=== PATIENT | female | born 2000 | race American Indian/Alaskan Native ===

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

== ENCOUNTER 2019-05-13 01:12 | Emergency (ER) | payer SELFPAY ==
[2019-05-13 01:40] LABS: Basophils % (Auto) 0.6 % (0.0-1.8); Eosinophils # (Auto) 0.2 K/mm3 (0.0-0.4); Eosinophils % (Auto) 2.9 % (0.0-4.3); Hematocrit 36.3 % (30.3-42.9); Lymphocytes # (Auto) 3.2 K/mm3 (1.2-5.4); Lymphocytes % (Auto) 40.1 % (13.4-35.0); Mean Corpuscular HGB Conc 36 % (30-34); Mean Corpuscular Volume 91 fl (79-97); Monocytes # (Auto) 0.8 K/mm3 (0.0-0.8); Monocytes % (Auto) 9.8 % (0.0-7.3); Platelet Count 189 K/mm3 (140-440); Red Cell Distribution Width 13.5 % (13.2-15.2)
[2019-05-13 01:57] LABS: Bilirubin,Urine NEG (Negative); Blood,Urine NEG (Negative); Color,Urine Straw (Yellow); Mucus,Urine FEW /HPF; Protein,Urine <15 mg/dL mg/dL (Negative); Urobilinogen,Urine < 2.0 mg/dL (<2.0)
[2019-05-13 02:03] LABS: Alanine Aminotransferase 37 units/L (7-56); Albumin 4.1 g/dL (3.9-5); BUN/Creatinine Ratio 9; Blood Urea Nitrogen 6 mg/dL (7-17); Calcium 9.3 mg/dL (8.4-10.2); Hemolysis Index 12
[2019-05-13] MEDS ORDERED: NACL 0.9% 1000 ML 1,000 ML IV ONE (02:06)
[2019-05-13] MEDS ORDERED: ZOFRAN IV ONE (02:06)
--- NOTE | 2019-05-13 04:36 | Ultrasound Report ---
PROCEDURE: US OB <= 14 WEEKS FETUS TECHNIQUE: Real-time transabdominal sonography of the uterus, placenta, amniotic fluid, adnexa, and fetus was performed with image documentation. Measurements were obtained to determine age/size. M-mode Doppler was used to document heartbeat. ADDITIONAL GESTATION: None. HISTORY: preg with abd pain/bleeding COMPARISONS: None . FINDINGS: CRL: 2.1 mm, which corresponds to a gestational age of: 5 weeks, 5 days. Yolk Sac: Appropriate for gestational age. . Embryonic Cardiac Activity: 76 . Gestational Sac: Size and shape are appropriate for gestational age Placenta: Normal Amniotic fluid: Appropriate for gestational age. Cervix: Normal. Right Ovary: There is a 2.3 cm complex cyst. . Left Ovary: Normal . Estimated delivery date: 01/08/2020 . Uterus and adnexa: Normal. IMPRESSION: Single live intrauterine gestation at approximately 5 weeks 5 days . EDC by US 0 . heart rate is low. This could be artifact due to early gestational age. Follow-up is recomm ended. This document is electronically signed by Abdi Ramos MD., May 13 2019 04:34:12 AM ET
--- NOTE | 2019-05-13 04:36 | Ultrasound Report ---
PROCEDURE: US OB TRANSVAGINAL TECHNIQUE: Real-time transvaginal sonography of the uterus, placenta, amniotic fluid, adnexa, and fe tus was performed with image documentation. Measurements were obtained to determine age/size. M -mode Doppler was used to document heartbeat. ADDITIONAL GESTATION: None. HISTORY: preg with abd pain/bleeding COMPARISONS: None . FINDINGS: CRL: 2.1 mm, which corresponds to a gestational age of: 5 weeks, 5 days. Yolk Sac: Appropriate for gestational age. . Embryonic Cardiac Activity: 76 . Gestational Sac: Size and shape are appropriate for gestational age Placenta: Normal Amniotic fluid: Appropriate for gestational age. Cervix: Normal. Right Ovary: There is a 2.3 cm complex cyst. . Left Ovary: Normal . Estimated delivery date: 01/08/2020 . Uterus and adnexa: Normal. IMPRESSION: Single live intrauterine gestation at approximately 5 weeks 5 days . EDC by US 0 . heart rate is low. This could be artifact due to early gestational age. Follow-up is recomm ended. This document is electronically signed by Abdi Ramos MD. , May 13 2019 04:34:56 AM ET
--- NOTE | 2019-05-13 05:00 | Emergency Department Report ---
Vomiting/Diarrhea - HPI Chief Complaint: Abdominal Pain Stated Complaint: ABD PAIN Time Seen by Provider: 05/13/19 01:50 Duration: patient is a 19-year-old female who is presenting with nausea and vomiting for approximately 1 month Severity: mild Nausea/Vomiting Severity: Mild Diarrhea Severity: None Pain Location: Generalized Pain Severity: Mild Symptoms: Yes Able to Tolerate Fluids, No Watery Diarrhea, No Bloody diarrhea, No Fever, No Recent Unusual Foods, No Recent Untreated Water, No Family w/ Similar Symptoms, No Contacts w/ Similar Symptoms, No Rash, No Hematuria, No Recent URI Symptoms Other History: A she states took 4 tests at home however she didn't believe them ED Review of Systems ROS: Stated complaint: ABD PAIN Other details as noted in HPI Comment: All other systems reviewed and negative ED Past Medical Hx - Past Medical History Previous Medical History?: No - Surgical History Past Surgical History?: Yes Additional Surgical History: miscarriage - Social History Smoking Status: Current Every Day Smoker Substance Use Type: Alcohol, Marijuana - Medications Home Medications: Home Medications Medication Instructions Recorded Confirmed Last Taken Type Ibuprofen [Motrin] 600 mg PO Q8H PRN #20 tablet 10/20/18 Unknown Rx Nitrofurantoin Monohyd/M-Cryst 100 mg PO BID #14 capsule 10/20/18 Unknown Rx [Macrobid 100 mg Capsule] Ondansetron [Zofran Odt] 4 mg PO Q8HR PRN #10 tab.rapdis 11/29/18 Unknown Rx Sulfamethoxazole/Trimethoprim 1 each PO BID #14 tablet 11/29/18 Unknown Rx [Bactrim DS TAB] Ibuprofen [Ibu] 600 mg PO Q6HR PRN #20 tablet 03/20/19 Unknown Rx Nitrofurantoin Monohyd/M-Cryst 100 mg PO BID #14 capsule 03/20/19 Unknown Rx [Macrobid 100 mg Capsule] Phenazopyridine [Pyridium] 200 mg PO BID #6 tab 03/20/19 Unknown Rx Ondansetron [Zofran Odt] 4 mg PO Q8HR #10 tab.rapdis 05/13/19 Unknown Rx Vomiting Diarrhea Exam - Exam General: Vital signs noted. No distress. Alert and acting appropriately. HEENT: Yes Moist Mucous Membranes, No Pharyngeal Erythema, No Pharyngeal Exudates, No Rhinorrhea, No Conjuctival Injection, No Frontal Tenderness, No Maxillary Tenderness Neck: No Adenopathy, No Rigidity Lungs: Yes Clear Lung Sounds, Yes Good Air Exchange, No Wheezes, No Stridor, No Cough, No Nasal Flaring, No Retractions, No Use of Accessory Muscles Heart exam: Regular: Yes, Murmur: No, Tachycardia: No Abdomen: Tenderness: No, Peritoneal Signs: No, Distention: No, Hyperactive Bowel sounds: No Skin exam: Rash: No, Edema: No, Normal turgor: Yes Neurologic: Alert and oriented, no deficits. Musculoskeletal: Unremarkable. ED Course Vital Signs 05/13/19 01:45 Temperature 99.1 F Pulse Rate 66 Respiratory 16 Rate Blood Pressure 108/63 [Left] O2 Sat by Pulse 97 Oximetry ED Medical Decision Making - Lab Data Result diagrams: 05/13/19 01:22 05/13/19 01:22 Patient: WILL MORRELL MR#: [id number] : 2000 Acct:[id number] Age/Sex: 19 / F ADM Date: 05/13/19 Loc: ED Attending Dr: Ordering Physician: LEVI MARTINEZ MD Date of Service: 05/13/19 Procedure(s): US OB transvaginal Accession Number(s): [id number] cc: LEVI MARTINEZ MD PROCEDURE: US OB TRANSVAGINAL TECHNIQUE: Real-time transvaginal sonography of the uterus, placenta, amniotic fluid, adnexa, and fetus was performed with image documentation. Measurements were obtained to determine age/size. M-mode Doppler was used to document heartbeat. ADDITIONAL GESTATION: None. HISTORY: preg with abd pain/bleeding COMPARISONS: None . FINDINGS: CRL: 2.1 mm, which corresponds to a gestational age of: 5 weeks, 5 days. Yolk Sac: Appropriate for gestational age. . Embryonic Cardiac Activity: 76 . Gestational Sac: Size and shape are appropriate for gestational age Placenta: Normal Amniotic fluid: Appropriate for gestational age. Cervix: Normal. Right Ovary: There is a 2.3 cm complex cyst. . Left Ovary: Normal . Estimated delivery date: 01/08/2020 . Uterus and adnexa: Normal. IMPRESSION: Single live intrauterine gestation at approximately 5 weeks 5 days . EDC by US 01/08/2020 . heart rate is low. This could be artifact due to early gestational age. Follow-up is recommended. This document is electronically signed by Abdi Grayson MD. , May 13 2019 04:34:56 AM ET Transcribed By: CO Dictated By: ABDI GRAYSON MD Electronically Authenticated By: ABDI GRAYSON MD Signed Date/Time: 05/13/19435 DD/ 4 TD/TT: 05/13/19407 - Radiology Data Patient: WILL MORRELL MR#: [id number] : 2000 Acct:[id number] Age/Sex: 19 / F ADM Date: 05/13/19 Loc: ED Attending Dr: Ordering Physician: LEVI MARTINEZ MD Date of Service: 05/13/19 Procedure(s): US OB transvaginal Accession Number(s): [id number] cc: LEVI MARTINEZ MD PROCEDURE: US OB TRANSVAGINAL TECHNIQUE: Real-time transvaginal sonography of the uterus, placenta, amniotic fluid, adnexa, and fetus was performed with image documentation. Measurements were obtained to determine age/size. M-mode Doppler was used to document heartbeat. ADDITIONAL GESTATION: None. HISTORY: preg with abd pain/bleeding COMPARISONS: None . FINDINGS: CRL: 2.1 mm, which corresponds to a gestational age of: 5 weeks, 5 days. Yolk Sac: Appropriate for gestational age. . Embryonic Cardiac Activity: 76 . Gestational Sac: Size and shape are appropriate for gestational age Placenta: Normal Amniotic fluid: Appropriate for gestational age. Cervix: Normal. Right Ovary: There is a 2.3 cm complex cyst. . Left Ovary: Normal . Estimated delivery date: 01/08/2020 . Uterus and adnexa: Normal. IMPRESSION: Single live intrauterine gestation at approximately 5 weeks 5 days . EDC by US 01/08/2020 . heart rate is low. This could be artifact due to early gestational age. Follow-up is recommended. This document is electronically signed by Abdi Grayson MD. , May 13 2019 04:34:56 AM ET Transcribed By: CO Dictated By: ABDI GRAYSON MD Electronically Authenticated By: ABDI GRAYSON MD Signed Date/Time: 05/13/19435 DD/ 4 TD/TT: 05/13/19 0408 - Medical Decision Making She was hydrated and her nausea was addressed. Patient does have a viable IEP and will be given [employer]IDENTIAL [employer]UMBER for follow-up Critical care attestation.: If time is entered above; I have spent that time in minutes in the direct care of this critically ill patient, excluding procedure time. ED Disposition Clinical Impression: IUP (intrauterine ), incidental, Hyperemesis gravidarum Disposition: TO HOME OR SELFCARE Is pt being admited?: No Does the pt Need Aspirin: No Condition: Stable Instructions: Hyperemesis Gravidarum (ED), (ED) [facility] - 3-5 Days MARCELINO GIPSON MD [Staff Physician] - 3-5 Days Time of Disposition: 05:00
[2019-05-13 05:12] VITALS: BP 115/80
== END 2019-05-13 05:12 | disposition home or self-care (01) ==
LOC: ED 01:12
DX: O21.0 Mild hyperemesis gravidarum (principal); Z3A.01 Less than 8 weeks gestation of pregnancy
CPT/HCPCS: 36415; 76801; 76817; 80053; 81001; 83690; 84702; 84703; 85025; 96361; 96374; 99284; J2405; J7030

== ENCOUNTER 2019-05-19 16:32 | Emergency (ER) | payer OTHER ==
[2019-05-19 16:37] VITALS: BP 106/45
--- NOTE | 2019-05-19 16:37 | Event Note ---
ED Screening Note ED Screening Note: M1 VAG BLEED IN PREG LMP 5-10 RX NONE PMH NONE PSH NONE NO CARE CIG This initial assessment/diagnostic orders/clinical plan/treatment(s) is/are subject to change based on patients health status, clinical progression and re- assessment by fellow clinical providers in the ED. Further treatment and workup at subsequent clinical providers discretion. Patient/guardian urged not to elope from the ED as their condition may be serious if not clinically assessed and managed. Initial orders include:
[2019-05-19 17:09] LABS: Hematocrit 37.4 % (30.3-42.9); Hemoglobin 12.9 gm/dl (10.1-14.3); Mean Corpuscular HGB Conc 35 % (30-34); Mean Corpuscular Volume 91 fl (79-97); Platelet Count 205 K/mm3 (140-440); Red Blood Count 4.13 M/mm3 (3.65-5.03); Red Cell Distribution Width 13.3 % (13.2-15.2)
[2019-05-19 17:39] LABS: HCG Qualitative,Urine Positive (Negative)
[2019-05-19 17:44] LABS: Bacteria,Urine 1+ /HPF (Negative); Bilirubin,Urine NEG (Negative); Blood,Urine NEG (Negative); Color,Urine Yellow (Yellow); Mucus,Urine FEW /HPF; Protein,Urine <15 mg/dL mg/dL (Negative); Urobilinogen,Urine < 2.0 mg/dL (<2.0)
[2019-05-19 17:46] LABS: Alanine Aminotransferase 27 units/L (7-56); BUN/Creatinine Ratio 7; Blood Urea Nitrogen 5 mg/dL (7-17); Calcium 8.9 mg/dL (8.4-10.2); Hemolysis Index 8
--- NOTE | 2019-05-19 20:15 | Emergency Department Report ---
ED HPI - General Chief complaint: Vaginal Bleeding Stated complaint: VAGINAL BLEEDING Time Seen by Provider: 05/19/19 16:36 Source: patient Mode of arrival: Ambulatory Limitations: No Limitations - History of Present Illness Initial comments: 19 year old female presents to the emergency room for vaginal bleeding since yesterday. Patient reports that she is 6 weeks . Last menstrual period was 04/07/2019. She is 2 para 0. Patient reports she's been spotting has not filled up any pads. She does report pelvic pain that is achy and intermittent. She is currently not on vitamins or care. She has no past medical history takes no medications on a daily basis and has no known drug allergies. MD Complaint: vaginal bleeding Onset/Timin -: days(s) Location: pelvis Radiation: suprapubic Severity scale (0 -10): 8 Quality: cramping Consistency: intermittent Improves with: none Worsens with: none Associated symptoms: denies other symptoms - Related Data Previous Rx's Medication Instructions Recorded Last Taken Type Ibuprofen [Motrin] 600 mg PO Q8H PRN #20 tablet 10/20/18 Unknown Rx Nitrofurantoin Monohyd/M-Cryst 100 mg PO BID #14 capsule 10/20/18 Unknown Rx [Macrobid 100 mg Capsule] Ondansetron [Zofran Odt] 4 mg PO Q8HR PRN #10 tab.rapdis 11/29/18 Unknown Rx Sulfamethoxazole/Trimethoprim 1 each PO BID #14 tablet 11/29/18 Unknown Rx [Bactrim DS TAB] Ibuprofen [Ibu] 600 mg PO Q6HR PRN #20 tablet 03/20/19 Unknown Rx Nitrofurantoin Monohyd/M-Cryst 100 mg PO BID #14 capsule 03/20/19 Unknown Rx [Macrobid 100 mg Capsule] Phenazopyridine [Pyridium] 200 mg PO BID #6 tab 03/20/19 Unknown Rx Ondansetron [Zofran Odt] 4 mg PO Q8HR #10 tab.rapdis 05/13/19 Unknown Rx Nitrofurantoin Sabine/M-Cryst 100 mg PO Q12HR 10 Days #20 capsule 05/19/19 Unknown Rx [Macrobid CAP] Pnv,Calcium 72/Iron/Folic Acid 1 each PO QDAY #90 tablet 05/19/19 Unknown Rx [ Plus Tablet] Allergies Allergy/AdvReac Type Severity Reaction Status Date / Time No Known Allergies Allergy Verified 05/19/19 16:33 ED Review of Systems ROS: Stated complaint: VAGINAL BLEEDING Other details as noted in HPI Comment: All other systems reviewed and negative Gastrointestinal: abdominal pain (suprapubic pain) Genitourinary: other (vaginal spotting) ED Past Medical Hx - Past Medical History Previous Medical History?: No - Surgical History Past Surgical History?: Yes Additional Surgical History: miscarriage - Social History Smoking Status: Current Every Day Smoker Substance Use Type: None - Medications Home Medications: Home Medications Medication Instructions Recorded Confirmed Last Taken Type Ibuprofen [Motrin] 600 mg PO Q8H PRN #20 tablet 10/20/18 Unknown Rx Nitrofurantoin Monohyd/M-Cryst 100 mg PO BID #14 capsule 10/20/18 Unknown Rx [Macrobid 100 mg Capsule] Ondansetron [Zofran Odt] 4 mg PO Q8HR PRN #10 tab.rapdis 11/29/18 Unknown Rx Sulfamethoxazole/Trimethoprim 1 each PO BID #14 tablet 11/29/18 Unknown Rx [Bactrim DS TAB] Ibuprofen [Ibu] 600 mg PO Q6HR PRN #20 tablet 03/20/19 Unknown Rx Nitrofurantoin Monohyd/M-Cryst 100 mg PO BID #14 capsule 03/20/19 Unknown Rx [Macrobid 100 mg Capsule] Phenazopyridine [Pyridium] 200 mg PO BID #6 tab 03/20/19 Unknown Rx Ondansetron [Zofran Odt] 4 mg PO Q8HR #10 tab.rapdis 05/13/19 Unknown Rx Nitrofurantoin [place]/M-Cryst 100 mg PO Q12HR 10 Days #20 capsule 05/19/19 U nknown Rx [Macrobid CAP] Pnv,Calcium 72/Iron/Folic Acid 1 each PO QDAY #90 tablet 05/19/19 Unknown Rx [ Plus Tablet] ED Physical Exam - General Limitations: No Limitations General appearance: alert, in no apparent distress - Head Head exam: Present: atraumatic, normocephalic - Eye Eye exam: Present: normal appearance - ENT ENT exam: Present: mucous membranes moist - Neck Neck exam: Present: normal inspection - Respiratory Respiratory exam: Present: normal lung sounds bilaterally. Absent: respiratory distress - Cardiovascular Cardiovascular Exam: Present: regular rate, normal rhythm. Absent: systolic murmur, diastolic murmur, rubs, gallop - GI/Abdominal GI/Abdominal exam: Present: soft, tenderness (suprapubic), normal bowel sounds. Absent: distended - Extremities Exam Extremities exam: Present: normal inspection - Back Exam Back exam: Present: normal inspection - Neurological Exam Neurological exam: Present: alert, oriented X3, normal gait - Psychiatric Psychiatric exam: Present: normal affect, normal mood - Skin Skin exam: Present: warm, dry, intact, normal color. Absent: rash ED Course Vital Signs 05/19/19 16:36 Temperature 98.6 F Pulse Rate 76 Respiratory 16 Rate Blood Pressure 106/45 O2 Sat by Pulse 100 Oximetry ED Medical Decision Making - Lab Data Result diagrams: 05/19/19 16:43 05/19/19 16:43 Laboratory Results - last 72 hr 05/19/19 05/19/19 05/19/19 16:43 16:43 16:43 WBC 5.7 RBC 4.13 Hgb 12.9 Hct 37.4 MCV 91 MCH 31 MCHC 35 H RDW 13.3 Plt Count 205 Sodium 131 L Potassium 3.4 L Chloride 96.6 L Carbon Dioxide 23 Anion Gap 15 BUN 5 L Creatinine 0.7 Estimated GFR > 60 BUN/Creatinine Ratio 7 Glucose 100 Calcium 8.9 Total Bilirubin 0.40 AST 20 ALT 27 Alkaline Phosphatase 52 Total Protein 7.1 Albumin 4.0 Albumin/Globulin Ratio 1.3 HCG, Quant 33999 H Urine Color Urine Turbidity Urine pH Ur Specific [place] Urine Protein Urine Glucose (UA) Urine Ketones Urine Blood Urine Nitrite Ur Reducing Substances Urine Bilirubin Urine Ictotest Urine Urobilinogen Ur Leukocyte Esterase Urine WBC (Auto) Urine RBC (Auto) U Epithel Cells (Auto) Urine Bacteria (Auto) Urine Mucus Urine HCG, Qual Blood Type 05/19/19 05/19/19 16:43 16:44 WBC RBC Hgb Hct MCV MCH MCHC RDW Plt Count Sodium Potassium Chloride Carbon Dioxide Anion Gap BUN Creatinine Estimated GFR BUN/Creatinine Ratio Glucose Calcium Total Bilirubin AST ALT Alkaline Phosphatase Total Protein Albumin Albumin/Globulin Ratio HCG, Quant Urine Color Yellow Urine Turbidity Slightly-cloudy Urine pH 7.0 Ur Specific [place] 1.015 Urine Protein <15 mg/dl Urine Glucose (UA) Neg Urine Ketones Neg Urine Blood Neg Urine Nitrite Neg Ur Reducing Substances Not Reportable Urine Bilirubin Neg Urine Ictotest Not Reportable Urine Urobilinogen < 2.0 Ur Leukocyte Esterase Mod Urine WBC (Auto) 10.0 H Urine RBC (Auto) 4.0 U Epithel Cells (Auto) 9.0 Urine Bacteria (Auto) 1+ Urine Mucus Few Urine HCG, Qual Positive A Blood Type O POSITIVE - Radiology Data Radiology results: report reviewed Patient: WILL MORRELL MR#: [id number] : 2000 Acct:[id number] Age/Sex: 19 / F ADM Date: 05/19/19 Loc: ED Attending Dr: Ordering Physician: FRANSISCO ESPINOSA Date of Service: 05/19/19 Procedure(s): US OB transvaginal Accession Number(s): [id number] cc: FRANSISCO ESPINOSA PROCEDURE: US OB TRANSVAGINAL TECHNIQUE: Real-time limited sonographic examination was performed for evaluation of each fetus with image documentation (1 or more fetuses). HISTORY: VAG BLEED . LMP 04/07/2019 with estimated age 6 weeks 0 days and EDC 01/12/2020 COMPARISONS: Ultrasound pelvis 05/13/2019 FINDINGS: MATERNAL Uterus: Within normal limits measuring 7.9 x 3.8 x 6.4 cm Internal Os: closed FETUS IUP: Single living intrauterine Amniotic fluid volume: Normal Heart rate and rhythm: 1:15 BPM, Regular gestational sac: pole and yolk sac visualized MEASUREMENTS CRL: 5.5 mm Mean Gestational Age (composite criteria): 6 weeks 2 days . Estimated Due Date (earliest scan): 01/10/2020 RIGHT OVARY: Normal measuring 3.5 x 2.0 x 2.7 cm. This is a 2.0 x 1.5 x 1.4 cm hypoechoic avascular area in the right ovary, smaller than seen previously. LEFT OVARY: Normal measuring 2.6 x 1.3 x 1.3 cm IMPRESSION: 1. Single living intrauterine gestation at approximately 6 weeks 2 days 2. EDC by US 01/10/2020 3. Reduction in size of the hypoechoic focus in the right ovary This document is electronically signed by Rosemary Branham MD., May 19 2019 08:28:54 PM ET Transcribed By: [facility] Dictated By: ROSEMARY BRANHAM MD Electronically Authenticated By: ROSEMARY BRANHAM MD Signed Date/Time: 05/19/192030 DD/ 52 TD/TT: 05/19/191953 - Medical Decision Making 19-year-old -[place] female reports that she is approximately 6 weeks comes in for vaginal bleeding and suprapubic pain. Labs show the patient is some mild low potassium 3.4. Urinalysis showed that she has urinary tract infection with 1+ bacteria. Critical care attestation.: If time is entered above; I have spent that time in minutes in the direct care of this critically ill patient, excluding procedure time. ED Disposition Clinical Impression: IUP (intrauterine ), incidental, Vaginal spotting, UTI (urinary tract infection) during Disposition: - TO HOME OR SELFCARE Is pt being admited?: No Does the pt Need Aspirin: No Condition: Stable Instructions: Urinary Tract Infection in Women (ED), Threatened Miscarriage (ED) Additional Instructions: Complete antibiotics as prescribed. Take her vitamins as prescribed. Tylenol as needed. Increase her water intake while taking medications. Follow- up with an OB provider I have listed several below for your convenience. Prescriptions: Nitrofurantoin Sabine/M-Cryst [Macrobid CAP] 100 mg PO Q12HR 10 Days #20 capsule Pnv,Calcium 72/Iron/Folic Acid [ Plus Tablet] 1 each PO QDAY #90 tablet Referrals: RAJI IZQUIERDO MD [Primary Care Provider] - 3-5 Days [facility] [Provider Group] - 3-5 Days [facility] [Provider Group] - 3-5 Days [facility] [Provider Group] - 3-5 Days Forms: Work/School Release Form(ED)
--- NOTE | 2019-05-19 20:24 | Ultrasound Report ---
PROCEDURE: US OB <= 14 WEEKS FETUS HISTORY: VAG BLEED FINDINGS: Real-time ultrasound of the pelvis was performed by transabdominal and endovaginal techniqu e. There is a single live intrauterine gestation at approximately 6 weeks and 2 days with cardiac activity 118 bpm. The right ovary measures 3.5 x 2.0 x 2.7 cm the left ovary 2.6 x 1.3 x 1.3 cm. There is no adnexal ma ss or evidence of ovarian torsion. IMPRESSION: Live intrauterine gestation at approximately 6 weeks and 2 days. Estimated date of delive ry is January 10, 2020 This document is electronically signed by Michael Mac MD., May 19 2019 08:21:56 PM ET
--- NOTE | 2019-05-19 20:31 | Ultrasound Report ---
PROCEDURE: US OB TRANSVAGINAL TECHNIQUE: Real-time limited sonographic examination was performed for evaluation of each fetus with image documentation (1 or more fetuses). HISTORY: VAG BLEED . LMP 04/07/2019 with estimated age 6 weeks 0 days and EDC 01/12/2020 COMPARISONS: Ultrasound pelvis 05/13/2019 FINDINGS: MATERNAL Uterus: Within normal limits measuring 7.9 x 3.8 x 6.4 cm Internal Os: closed FETUS IUP: Single living intrauterine Amniotic fluid volume: Normal Heart rate and rhythm: 1:15 BPM, Regular gestational sac: pole and yolk sac visualized MEASUREMENTS CRL: 5.5 mm Mean Gestational Age (composite criteria): 6 weeks 2 days . Estimated Due Date (earliest scan): 01/10/2020 RIGHT OVARY: Normal measuring 3.5 x 2.0 x 2.7 cm. This is a 2.0 x 1.5 x 1.4 cm hypoechoic avascular a evon in the right ovary, smaller than seen previously. LEFT OVARY: Normal measuring 2.6 x 1.3 x 1.3 cm IMPRESSION: 1. Single living intrauterine gestation at approximately 6 weeks 2 days 2. EDC by US 01/10/2020 3. Reduction in size of the hypoechoic focus in the right ovary This document is electronically signed by Rosemary Branham MD., May 19 2019 08:28:54 PM ET
== END 2019-05-19 21:09 | disposition home or self-care (01) ==
LOC: ED 16:32
DX: O20.8 Other hemorrhage in early pregnancy (principal); O99.331 Smoking (tobacco) complicating pregnancy, first trimester; Z3A.01 Less than 8 weeks gestation of pregnancy
CPT/HCPCS: 36415; 76801; 76817; 80053; 81001; 81025; 84702; 85027; 86900; 86901; 87086

== ENCOUNTER 2019-06-20 16:57 | Emergency (ER) | payer SELFPAY ==
[2019-06-20 18:13] VITALS: BP 102/55
--- NOTE | 2019-06-20 18:15 | Event Note ---
ED Screening Note Date of service: 06/20/19 Time: 18:11 ED Screening Note: This is a 19 y.o. F. that presents to the ER with abdominal pain and chest pain. Patient is 10 weeks w/o LUNCHROOM SUPERVISOR care. Reports vaginal discharge. Denies vaginal bleeding, cough, fever, This initial assessment/diagnostic orders/clinical plan/treatment(s) is/are subject to change based on patients health status, clinical progression and re- assessment by fellow clinical providers in the ED. Further treatment and workup at subsequent clinical providers discretion. Patient/guardian urged not to elope from the ED as their condition may be serious if not clinically assessed and managed. Initial orders include: Labs and OB US
[2019-06-20 18:59] LABS: Basophils % (Auto) 0.5 % (0.0-1.8); Eosinophils # (Auto) 0.2 K/mm3 (0.0-0.4); Eosinophils % (Auto) 2.7 % (0.0-4.3); Hematocrit 38.8 % (30.3-42.9); Hemoglobin 13.5 gm/dl (10.1-14.3); Lymphocytes # (Auto) 2.4 K/mm3 (1.2-5.4); Lymphocytes % (Auto) 29.1 % (13.4-35.0); Mean Corpuscular HGB Conc 35 % (30-34); Mean Corpuscular Volume 89 fl (79-97); Monocytes # (Auto) 0.7 K/mm3 (0.0-0.8); Monocytes % (Auto) 8.9 % (0.0-7.3); Platelet Count 200 K/mm3 (140-440); Red Blood Count 4.35 M/mm3 (3.65-5.03); Red Cell Distribution Width 12.9 % (13.2-15.2)
[2019-06-20 19:11] LABS: Bacteria,Urine 2+ /HPF (Negative); Bilirubin,Urine NEG (Negative); Blood,Urine NEG (Negative); Color,Urine Yellow (Yellow); Mucus,Urine FEW /HPF; Protein,Urine <15 mg/dL mg/dL (Negative); Urobilinogen,Urine < 2.0 mg/dL (<2.0)
[2019-06-20 19:14] LABS: Alanine Aminotransferase 21 units/L (7-56); Albumin 4.4 g/dL (3.9-5); BUN/Creatinine Ratio 10; Blood Urea Nitrogen 5 mg/dL (7-17); Calcium 9.5 mg/dL (8.4-10.2); Hemolysis Index 7
--- NOTE | 2019-06-20 20:05 | Ultrasound Report ---
ULTRASOUND OBSTETRIC INDICATION / CLINICAL INFORMATION: abdominal pain 20 weeks gest. TECHNIQUE: Transabdominal. COMPARISON: OB ultrasound 05/19/2019 FINDINGS: GESTATIONAL SAC: Well-defined oval shape and intrauterine in location. YOLK SAC: No significant abnormality. EMBRYO/FETUS: No significant abnormality. - [place]-Rump Length = 4.14 cm = 11 weeks, 0 day(s). - Heart Rate, beats per minute (if present) = 172 ADNEXA: Right ovary appears within normal limits measuring 3.1 x 3.1 x 3.0 cm without cyst or mass. Left ovary visualized secondary to overlying bowel gas. FREE FLUID: None. ADDITIONAL FINDINGS: None. IMPRESSION: 1. Single, living intrauterine with estimated sonographic age of 11 weeks, 0 day(s). 2. Left ovary not visualized Signer Name: Max Rmoero MD Signed: 06/20/2019 8:00 PM Workstation Name: [id number]
--- NOTE | 2019-06-20 20:53 | Emergency Department Report ---
HPI - General Chief Complaint: Chest Pain Time Seen by Provider: 06/20/19 18:11 - HPI HPI: Morris 19 The patient is a 19-year-old female presenting with a chief complaint of abdominal pain and chest pain. The patient states she is approximately 10 weeks gestational age but does not yet have an NETWORK FIELD ENGINEER. Patient states for the past 2 days she has had intermittent suprapubic abdominal pain. Patient denies dysuria or hematuria. Patient denies vaginal bleeding. The patient states today she is also had sharp substernal chest pain and pleurisy. Patient states occasionally she feels short of breath. Patient denies history of fever or cough Location: [See above] Duration: [See above] Quality: [See above] Severity: [See above] Modifying factors: [see above] Context: [see above] Mode of transportation: [not driving] ED Past Medical Hx - Past Medical History Previous Medical History?: No - Surgical History Additional Surgical History: miscarriage - Family History Family history: no significant - Social History Smoking Status: Current Every Day Smoker (1 cigarette daily) Substance Use Type: None (denies illicit drug use) - Medications Home Medications: Home Medications Medication Instructions Recorded Confirmed Last Taken Type Ibuprofen [Motrin] 600 mg PO Q8H PRN #20 tablet 10/20/18 Unknown Rx Nitrofurantoin Monohyd/M-Cryst 100 mg PO BID #14 capsule 10/20/18 Unknown Rx [Macrobid 100 mg Capsule] Ondansetron [Zofran Odt] 4 mg PO Q8HR PRN #10 tab.rapdis 11/29/18 Unknown Rx Sulfamethoxazole/Trimethoprim 1 each PO BID #14 tablet 11/29/18 Unknown Rx [Bactrim DS TAB] Ibuprofen [Ibu] 600 mg PO Q6HR PRN #20 tablet 03/20/19 Unknown Rx Nitrofurantoin Monohyd/M-Cryst 100 mg PO BID #14 capsule 03/20/19 Unknown Rx [Macrobid 100 mg Capsule] Phenazopyridine [Pyridium] 200 mg PO BID #6 tab 03/20/19 Unknown Rx Ondansetron [Zofran Odt] 4 mg PO Q8HR #10 tab.rapdis 05/13/19 Unknown Rx Nitrofurantoin Ashley/M-Cryst 100 mg PO Q12HR 10 Days #20 capsule 05/19/19 Unknown Rx [Macrobid CAP] Pnv,Calcium 72/Iron/Folic Acid 1 each PO QDAY #90 tablet 05/19/19 Unknown Rx [ Plus Tablet] Nitrofurantoin Ashley/M-Cryst 100 mg PO Q12HR #14 capsule 06/20/19 Unknown Rx [Macrobid CAP] ED Review of Systems ROS: Stated complaint: CHEST PAIN/ADB PAIN/10 WKS PREG Other details as noted in HPI Constitutional: denies: fever Eyes: denies: eye pain ENT: denies: throat pain Respiratory: shortness of breath Cardiovascular: chest pain Endocrine: no symptoms reported Gastrointestinal: abdominal pain Genitourinary: denies: dysuria, hematuria, abnormal menses Musculoskeletal: denies: back pain Neurological: denies: headache Physical Exam - Physical Exam Vital Signs: Vital Signs 06/20/19 18:11 Temperature 98.4 F Pulse Rate 76 Respiratory 18 Rate Blood Pressure 102/55 O2 Sat by Pulse 100 Oximetry Physical Exam: GENERAL: The patient is well-developed well-nourished female lying on stretcher not appear to be in acute distress. [] HEENT: Normocephalic. Atraumatic. Extraocular motions are intact. Patient has moist mucous membranes. NECK: Supple. Trachea midline CHEST/LUNGS: Clear to auscultation. There is no respiratory distress noted. HEART/CARDIOVASCULAR: Regular. There is no tachycardia. There is no gallop rub or murmur. ABDOMEN: Abdomen is soft, with mild right-sided and suprapubic discomfort to palpation. Patient has normal bowel sounds. There is no abdominal distention. SKIN: There is no rash. There is no edema. There is no diaphoresis. NEURO: The patient is awake, alert, and oriented. The patient is cooperative. The patient has normal speech MUSCULOSKELETAL: There is no evidence of acute injury. ED Course Vital Signs 06/20/19 18:11 Temperature 98.4 F Pulse Rate 76 Respiratory 18 Rate Blood Pressure 102/55 O2 Sat by Pulse 100 Oximetry ED Medical Decision Making - Lab Data Result diagrams: 06/20/19 18:42 06/20/19 18:42 Laboratory Tests 06/20/19 06/20/19 06/20/19 18:37 18:42 18:42 WBC 8.3 RBC 4.35 Hgb 13.5 Hct 38.8 MCV 89 MCH 31 MCHC 35 H RDW 12.9 L Plt Count 200 Lymph % (Auto) 29.1 Ashley % (Auto) 8.9 H Eos % (Auto) 2.7 Baso % (Auto) 0.5 Lymph # 2.4 Ashley # 0.7 Eos # 0.2 Baso # 0.0 Seg Neutrophils % 58.8 Seg Neutrophils # 4.9 D-Dimer Sodium 133 L Potassium 3.6 Chloride 98.1 Carbon Dioxide 23 Anion Gap 16 BUN 5 L Creatinine 0.5 L Estimated GFR > 60 BUN/Creatinine Ratio 10 Glucose 77 Calcium 9.5 Total Bilirubin 0.50 AST 18 ALT 21 Alkaline Phosphatase 49 Total Protein 8.0 Albumin 4.4 Albumin/Globulin Ratio 1.2 HCG, Qual Urine Color Yellow Urine Turbidity Slightly-cloudy Urine pH 7.0 Ur Specific [place] 1.017 Urine Protein <15 mg/dl Urine Glucose (UA) Neg Urine Ketones 20 Urine Blood Neg Urine Nitrite Neg Urine Bilirubin Neg Urine Urobilinogen < 2.0 Ur Leukocyte Esterase Lg Urine WBC (Auto) 81.0 H Urine RBC (Auto) 10.0 U Epithel Cells (Auto) 9.0 Urine Bacteria (Auto) 2+ Urine Mucus Few 06/20/19 06/20/19 18:42 20:51 WBC RBC Hgb Hct MCV MCH MCHC RDW Plt Count Lymph % (Auto) Ashley % (Auto) Eos % (Auto) Baso % (Auto) Lymph # Ashley # Eos # Baso # Seg Neutrophils % Seg Neutrophils # D-Dimer < 135.00 Sodium Potassium Chloride Carbon Dioxide Anion Gap BUN Creatinine Estimated GFR BUN/Creatinine Ratio Glucose Calcium Total Bilirubin AST ALT Alkaline Phosphatase Total Protein Albumin Albumin/Globulin Ratio HCG, Qual Positive Urine Color Urine Turbidity Urine pH Ur Specific [place] Urine Protein Urine Glucose (UA) Urine Ketones Urine Blood Urine Nitrite Urine Bilirubin Urine Urobilinogen Ur Leukocyte Esterase Urine WBC (Auto) Urine RBC (Auto) U Epithel Cells (Auto) Urine Bacteria (Auto) Urine Mucus - EKG Data -: EKG Interpreted by Me EKG shows normal: sinus rhythm Rate: normal - EKG Data When compared to previous EKG there are: previous EKG unavailable Interpretation: nonspecific ST-T wave patti (T-wave inversion in lead V2) - Radiology Data Radiology results: report reviewed (pelvic ultrasound), image reviewed (pelvic ultrasound) [facility] [address] [place] [address] Ultrasound Report Signed Patient: WILL MORRELL MR#: [id number] : 2000 Acct:[id number] Age/Sex: 19 / F ADM Date: 06/20/19 Loc: ED Attending Dr: Ordering Physician: ROSEMARIE BEAULIEU Date of Service: 06/20/19 Procedure(s): US OB <= 14 weeks fetus Accession Number(s): [id number] cc: ROSEMARIE BEAULIEU ULTRASOUND OBSTETRIC INDICATION / CLINICAL INFORMATION: abdominal pain 20 weeks gest. TECHNIQUE: Transabdominal. COMPARISON: OB ultrasound 05/19/2019 FINDINGS: GESTATIONAL SAC: Well-defined oval shape and intrauterine in location. YOLK SAC: No significant abnormality. EMBRYO/FETUS: No significant abnormality. - [place]-Rump Length = 4.14 cm = 11 weeks, 0 day(s). - Heart Rate, beats per minute (if present) = 172 ADNEXA: Right ovary appears within normal limits measuring 3.1 x 3.1 x 3.0 cm without cyst or mass. Left ovary visualized secondary to overlying bowel gas. FREE FLUID: None. ADDITIONAL FINDINGS: None. IMPRESSION: 1. Single, living intrauterine with estimated sonographic age of 11 weeks, 0 day(s). 2. Left ovary not visualized Signer Name: Max Romero MD Signed: 06/20/2019 8:00 PM Workstation Name: [id number] Transcribed By: Dictated By: Max Romero MD Electronically Authenticated By: Max Romero MD Signed Date/Time: 06/20/191999 DD/ 57 TD/TT: - Differential Diagnosis UTI, threatened , PE, costochondritis Critical care attestation.: If time is entered above; I have spent that time in minutes in the direct care of this critically ill patient, excluding procedure time. ED Disposition Clinical Impression: UTI (urinary tract infection), Chest pain Disposition: - LEFT AGAINST MED ADVICE Is pt being admited?: No Does the pt Need Aspirin: No Condition: Stable Instructions: Chest Pain (ED) Additional Instructions: Return to the emergency department immediately should you develop worsening symptoms, fever, inability to tolerate food or liquid or any other concerns. Prescriptions: Nitrofurantoin Ashley/M-Cryst [Macrobid CAP] 100 mg PO Q12HR #14 capsule Referrals: MARLEEN NUGENT MD [Staff Physician] - PETE (Dr. Nugent is an NETWORK FIELD ENGINEER. Please follow with her for further evaluation) Forms: AMA Form Time of Disposition: 21:37
== END 2019-06-20 21:33 | disposition left against medical advice (07) ==
LOC: ED 16:57
DX: O23.41 Unspecified infection of urinary tract in pregnancy, first trimester (principal); O26.891 Other specified pregnancy related conditions, first trimester; R07.89 Other chest pain; O99.331 Smoking (tobacco) complicating pregnancy, first trimester; Z79.899 Other long term (current) drug therapy; Z3A.11 11 weeks gestation of pregnancy
CPT/HCPCS: 36415; 76801; 80053; 81001; 84703; 85025; 85379; 87086; 93005; 93010

== ENCOUNTER → 2020-04-28 | Emergency (ER) | payer MEDICAID ==
[2020-04-28 11:01] VITALS: BP 112/74
[2020-04-28 11:33] LABS: Basophils % (Auto) 0.4 % (0.0-1.8); Eosinophils # (Auto) 0.1 K/mm3 (0.0-0.4); Eosinophils % (Auto) 0.8 % (0.0-4.3); Hemoglobin 14.1 gm/dl (10.1-14.3); Lymphocytes # (Auto) 2.4 K/mm3 (1.2-5.4); Lymphocytes % (Auto) 32.9 % (13.4-35.0); Mean Corpuscular HGB Conc 34 % (30-34); Mean Corpuscular Volume 84 fl (79-97); Monocytes # (Auto) 0.7 K/mm3 (0.0-0.8); Monocytes % (Auto) 9.1 % (0.0-7.3); Platelet Count 279 K/mm3 (140-440); Red Blood Count 4.98 M/mm3 (3.65-5.03)
[2020-04-28 11:49] LABS: Alanine Aminotransferase 40 units/L (7-56); Albumin 4.5 g/dL (3.9-5); BUN/Creatinine Ratio 8; Bilirubin,Direct < 0.2 mg/dL (0-0.2); Blood Urea Nitrogen 6 mg/dL (7-17); Calcium 9.2 mg/dL (8.4-10.2); Hemolysis Index 7
== END | disposition left against medical advice (07) ==
LOC: ED 10:50
DX: Z53.21 Procedure and treatment not carried out due to patient leaving prior to being seen by health care provider (principal); R07.9 Chest pain, unspecified
CPT/HCPCS: 36415; 80048; 80076; 80320; 85025; G0480